=== PATIENT | female | born 1970 | race Caucasian/White ===

== ENCOUNTER 2018-08-11 08:02 | Emergency (ER) | payer BC ==
[2018-08-11] MEDS ORDERED: MAGNE/ALUM HYDROXD 30 ML UCUP ONE (09:06)
[2018-08-11] MEDS ORDERED: METHYLPREDNISOLONE 40 MG INJ ONE (09:07)
[2018-08-11] MEDS ORDERED: NA CHLORIDE 0.9% 1,000 ML ONE (09:07)
[2018-08-11] MEDS ORDERED: MORPHINE 4 MG/ML SYR ONE ×2 (09:07→15:07)
[2018-08-11] MEDS ORDERED: ONDANSETRON 4 MG/2 ML VIAL ONE ×2 (09:07→15:07)
[2018-08-11] MEDS ORDERED: LIDOCAINE VISCOUS 2% SOLN 15 ML UDC ONE (09:08)
[2018-08-11 09:29] LABS: Absolute Lymphocytes (CBC) 0.4 K/uL (0.7-4.9); Absolute Monocytes 0.3 K/uL (0.1-1.3); Absolute Neutrophil 9.2 K/uL (1.8-8.0); Basophils % 0.1 % (0-1.3); Hematocrit 46.4 % (36.0-45.0); Lymphocytes % 3.6 % (15.3-44.8); MCH 30.7 pg (27.0-35.0); MCV 91.6 fL (80-100); MPV 8.8 fL (7.6-11.3); Monocytes % 3.1 % (3.3-12.3); RBC Red Blood Cell Count 5.07 M/uL (3.86-4.86)
--- NOTE | 2018-08-11 09:40 | EKG ---
Test Date: 2018-08-11 Test Time: 08:50:04 Industrial Sales Representative: SKY MEASUREMENT RESULTS: Intervals: Rate: 63 MT: 134 QRSD: 100 QT: 390 QTc: 399 [place]: P: 60 MT: 134 QRS: 74 T: 44 INTERPRETIVE STATEMENTS: Normal sinus rhythm Normal ECG No previous ECG available for comparison Electronically Signed On 08-11-18 09:39:30 MOLASSES COLORING OPERATOR by Theo Call
[2018-08-11 09:55] LABS: Albumin 3.7 g/dL (3.4-5.0); Bilirubin Direct 2.6 mg/dL (0-0.2); Bilirubin Total 5.7 mg/dL (0.2-1.0); Potassium 4.1 mmol/L (3.5-5.1); Protein, Total 7.8 g/dL (6.4-8.2)
[2018-08-11 10:26] LABS: Blood Morphology Comment NOT SEEN (NOT SEEN); Platelet Estimate ADEQ; Urine White Blood Cell Casts OK
[2018-08-11] MEDS ORDERED: NA CHLORIDE 0.9% 250 ML ONE (10:38)
[2018-08-11] MEDS ORDERED: METRONIDAZOLE 500mg IVPB 500 MG/100 ML BAG IV ONE (10:38)
[2018-08-11] MEDS ORDERED: CEFTRIAXONE 1000 MG/VIAL ONE (10:38)
--- NOTE | 2018-08-11 10:49 | EDPHYS ---
Physician Documentation [facility] Name: Muriel Byrd Age: 47 yrs Sex: Female : 1970 Arrival Date: 08/11/2018 Time: 08:08 Bed 7 Private MD: Kirby Barajas B ED Physician Rekha Cornejo HPI: 08/11 10:49 This 47 yrs old Female presents to ER via Ambulatory with complaints of ma2 Abdominal Pain, Vomiting. 08:59 The patient presents to the emergency department with vomiting, abdominal pain. Onset: ma2 The symptoms/episode began/occurred gradually, 4 day(s) ago. Possible causes: unknown. Associated signs and symptoms: Pertinent negatives:. Severity of symptoms: At their worst the symptoms were moderate in the emergency department the symptoms are unchanged. The patient has experienced a previous episode. hx of mild crohns no medication.. here with diffuse abdominal pain and vomiting and constipation x 4 days, constant gradual . 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 - Social history:: Smoking status: Patient/guardian denies using tobacco, Patient/guardian denies using alcohol, street drugs, The patient lives with family. - Ebola Screening: : No symptoms or risks identified at this time. - Family history:: not pertinent. ROS: 08:59 Constitutional: Negative for fever, chills, and weight loss, ENT: Negative for injury, ma2 pain, and discharge. 08:59 Abdomen/GI: Positive for abdominal pain, nausea and vomiting, Negative for vomiting, abdominal cramps, flatulence. 08:59 All other systems are negative. Exam: 08:59 Constitutional: This is a well developed, well nourished patient who is awake, alert, ma2 and in no acute distress. Head/Face: Normocephalic, atraumatic. Chest/axilla: Normal chest wall appearance and motion. Nontender with no deformity. No lesions are appreciated. Cardiovascular: Regular rate and rhythm with a normal S1 and S2. No gallops, murmurs, or rubs. Normal PMI, no JVD. No pulse deficits. Respiratory: Lungs have equal breath sounds bilaterally, clear to auscultation and percussion. No rales, rhonchi or wheezes noted. No increased work of breathing, no retractions or nasal flaring. Back: No spinal tenderness. No costovertebral tenderness. Full range of motion. MS/ Extremity: Pulses equal, no cyanosis. Neurovascular intact. Full, normal range of motion. Neuro: Awake and alert, GCS 15, oriented to person, place, time, and situation. Cranial nerves II-XII grossly intact. Motor strength 5/5 in all extremities. Sensory grossly intact. Cerebellar exam normal. Normal gait. 08:59 Abdomen/GI: Palpation: moderate abdominal tenderness, in the left lower quadrant, rebound tenderness, is not appreciated, voluntary guarding, is not appreciated, involuntary guarding, is not appreciated. Vital Signs: 08:36 BP 117 / 65; Pulse 72; Resp 18 S; Temp 98.8(O); Pulse Ox 100% on R/A; Weight 68.04 kg jl7 (R); Height 5 ft. 9 in. (175.26 cm) (R); Pain 6/10; 09:30 BP 125 / 75; Pulse 72; Resp 16; Pulse Ox 100% ; jl7 10:30 BP 115 / 71; Pulse 70; Resp 16 S; Pulse Ox 100% on R/A; jl7 12:01 BP 114 / 74; Pulse 65; Resp 16 S; Temp 99(O); Pulse Ox 99% on R/A; Pain 2/10; jl7 13:30 BP 110 / 65; Pulse 70; Resp 16 S; Pulse Ox 100% on R/A; jl7 15:00 BP 106 / 61; Pulse 75; Resp 16 S; Pulse Ox 100% on R/A; jl7 08:36 Body Mass Index 22.15 (68.04 kg, 175.26 cm) 7 MDM: 10:06 Patient medically screened. ma2 10:32 Differential diagnosis: Nonspecific abd pain, gastritis, pancreatitis, appendicitis, ma2 diverticulitis. 10:44 Data reviewed: vital signs, nurses notes. Counseling: I had a detailed discussion with ma2 the patient and/or guardian regarding: the historical points, exam findings, and any diagnostic results supporting the discharge/admit diagnosis, the presence of at least one elevated blood pressure reading (>120/80) during this emergency department visit, the need to transfer to another facility. Response to treatment: the patient's symptoms have markedly improved after treatment. ED course: patient has pancreatitis with elevated LFT and d bili likely choledocholithiasis, she will need ERCP not available in our hospital as GI service is not available.. will transfer for higher level of care.. accepted by Dr. Ozzy BOYCE . 08/11 08:50 Order name: Basic Metabolic Panel; Complete Time: 10: [facility] 08/11 08:50 Order name: CBC with Diff; Complete Time: 10:40 [facility] 08/11 08:50 Order name: Creatinine for Radiology; Complete Time: : [facility] 08/11 08:50 Order name: Hepatic Function; Complete Time: 10: [facility] 08/11 08:50 Order name: Lipase; Complete Time: : [facility] 08/11 09:35 Order name: CBC Smear Scan; Complete Time: 10:40 [facility] 08/11 10:05 Order name: Blood Culture Adult (2) [facility] 08/11 10:51 Order name: Urine Dipstick--Ancillary (enter results); Complete Time: 13: 08/11 10:51 Order name: Urine --Ancillary (enter results); Complete Time: 13:07 08/11 08:50 Order name: IV Saline Lock; Complete Time: 09:31 [facility] 08/11 08:50 Order name: Labs collected and sent; Complete Time: 09: [facility] 08/11 08:50 Order name: Urine Dipstick-Ancillary (obtain specimen); Complete Time: : [facility] 08/11 09:39 Order name: EKG Electrocardiogram; Complete Time: 11:53 [facility] 08/11 10:05 Order name: NPO; Complete Time: :56 [facility] 08/11 11:53 Order name: EKG - Nurse/Tech; Complete Time: 11:53 jl7 Administered Medications: 09:15 Drug: NS 0.9% 1000 ml Route: IV; Rate: 1 bolus; Site: right antecubital; jl7 10:00 Follow up: IV Status: Completed infusion; IV Intake: 1000ml bp 09:16 Drug: Zofran 4 mg Route: IVP; Site: right antecubital; jl7 09:30 Follow up: Response: No adverse reaction; Nausea is decreased jl7 09:18 Drug: GI Cocktail without - (Maalox Suspension 30 ml, Lidocaine Liquid 2 % 15 jl7 ml) Route: PO; 10:00 Follow up: Response: No adverse reaction; Pain is decreased jl7 09:20 Drug: MethylPrednisoLONE 80 mg Route: IVP; Site: right antecubital; jl7 10:00 Follow up: Response: No adverse reaction; Pain is decreased jl7 09:25 Drug: morphine 4 mg Route: IVP; Site: right antecubital; jl7 10:00 Follow up: Response: No adverse reaction; Pain is decreased jl7 10:56 Drug: Rocephin 2 grams Route: IV; Rate: calculated rate; Site: right antecubital; bp 11:44 Follow up: IV Status: Completed infusion; IV Intake: 100ml bp 11:00 Drug: Flagyl 500 mg Volume: 100 ml; Route: IVPB; Rate: 200 ml/hr; Infused Over: 30 bp mins; Site: right antecubital; 11:30 Follow up: Response: No adverse reaction; IV Status: Completed infusion jl7 15:01 Drug: Zofran 4 mg Route: IVP; Site: right antecubital; jl7 15:08 Follow up: Response: No adverse reaction jl7 15:04 Drug: morphine 4 mg Route: IVP; Site: right antecubital; jl7 15:09 Follow up: Response: No adverse reaction; Pain is decreased jl7 Disposition: 08/11/18 10:[address] [facility]. Diagnosis are Acute pancreatitis, Biliary acute pancreatitis. - Reason for transfer: Higher level of care. - Accepting physician is Dr. Preciado. - Condition is Stable. - Problem is new. - Symptoms are unchanged. Signatures: Dispatcher [employer] Leonid Olivarez RN RN jl7 Tima Ruiz RN RN bp Rekha Cornejo MD MD ma2 Corrections: (The following items were deleted from the chart) 11:00 08:56 Abdomen Pelvis W Con+CT.RAD.BRZ ordered. EDMS EDMS 15:12 10:48 08/11/2018 10:[address] [facility]. Diagnosis is jl7 Acute pancreatitis; Biliary acute pancreatitis. Reason for transfer: Higher level of care. Accepting physician is Dr. Preciado. Condition is Stable. Problem is new. Symptoms are unchanged. ma2
--- NOTE | 2018-08-11 10:49 | ER ---
Nurse's Notes [facility] Name: Muriel Byrd Age: 47 yrs Sex: Female : 1970 Arrival Date: 08/11/2018 Time: 08:08 Bed 7 Private MD: Kirby Barajas B Diagnosis: Acute pancreatitis;Biliary acute pancreatitis Presentation: 08/11 08:33 Presenting complaint: Patient states: Bilateral lower quadrant pain/cramping/spasms and jl7 vomiting x 3 days, rated 6/10. Pt reports "I feel like I have heart burn in my chest that goes through to my back.", pain rated 5/10. Transition of care: patient was not received from another setting of care. Onset of symptoms was August 08, 2018. Risk Assessment: Do you want to hurt yourself or someone else? Patient reports no desire to harm self or others. Initial Sepsis Screen: Does the patient meet any 2 criteria? No. Patient's initial sepsis screen is negative. Does the patient have a suspected source of infection? No. Patient's initial sepsis screen is negative. Care prior to arrival: None. 08:33 Method Of Arrival: Ambulatory jl7 08:33 Acuity: SILVANA 3 jl7 Triage Assessment: 08:36 General: Appears in no apparent distress. uncomfortable, ill, Behavior is calm, jl7 cooperative, appropriate for age. Pain: Complains of pain in right lower quadrant and left lower quadrant Pain does not radiate. Pain currently is 6 out of 10 on a pain scale. Quality of pain is described as crampy, Pain began 2-3 days ago. Is continuous. Pain: Complains of pain in anterior aspect of right upper chest and anterior aspect of left upper chest Pain radiates to left scapular area and right scapular area Pain currently is 5 out of 10 on a pain scale. Quality of pain is described as burning, Pain began 2-3 days ago. Is continuous. EENT: No signs and/or symptoms were reported regarding the EENT system. Neuro: Level of Consciousness is awake, alert, obeys commands, Oriented to person, place, time, situation. Cardiovascular: Heart tones S1 S2 present Patient's skin is warm and dry. Respiratory: Airway is patent Respiratory effort is even, unlabored, Respiratory pattern is Breath sounds are clear bilaterally. GI: Abdomen is flat, non-distended, Last BM was August 06, 2018. Bowel sounds hypoactive in right upper quadrant, left upper quadrant, right lower quadrant and left lower quadrant Abd is soft X 4 quads Abdomen is tender to palpation X 4 quads. Reports nausea, vomiting. : No signs and/or symptoms were reported regarding the genitourinary system. Derm: Skin is dry, Skin is jaundiced, pale, Skin temperature is warm. Musculoskeletal: Range of motion: intact in all extremities. 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 - Social history:: Smoking status: Patient/guardian denies using tobacco, Patient/guardian denies using alcohol, street drugs, The patient lives with family. - Ebola Screening: : No symptoms or risks identified at this time. - Family history:: not pertinent. Screenin:00 Abuse screen: Denies threats or abuse. Denies injuries from another. Nutritional jl7 screening: No deficits noted. Tuberculosis screening: No symptoms or risk factors identified. Fall Risk IV access (20 points). Assessment: 08:45 General: See triage assessment. jl7 10:00 Reassessment: Patient and/or family updated on plan of care and expected duration. Pain jl7 level reassessed. Patient is alert, oriented x 3, equal unlabored respirations, skin warm/dry/pink. Patient states symptoms have improved. 11:00 Reassessment: Patient appears in no apparent distress at this time. No changes from jl7 previously documented assessment. Patient and/or family updated on plan of care and expected duration. Pain level reassessed. Patient is alert, oriented x 3, equal unlabored respirations, skin warm/dry/pink. 12:00 Reassessment: Patient appears in no apparent distress at this time. Patient and/or jl7 family updated on plan of care and expected duration. Pain level reassessed. Patient is alert, oriented x 3, equal unlabored respirations, skin warm/dry/pink. 14:00 Reassessment: Patient and/or family updated on plan of care and expected duration. Pain jl7 level reassessed. Patient is alert, oriented x 3, equal unlabored respirations, skin warm/dry/pink. Vital Signs: 08:36 BP 117 / 65; Pulse 72; Resp 18 S; Temp 98.8(O); Pulse Ox 100% on R/A; Weight 68.04 kg jl7 (R); Height 5 ft. 9 in. (175.26 cm) (R); Pain 6/10; 09:30 BP 125 / 75; Pulse 72; Resp 16; Pulse Ox 100% ; jl7 10:30 BP 115 / 71; Pulse 70; Resp 16 S; Pulse Ox 100% on R/A; jl7 12:01 BP 114 / 74; Pulse 65; Resp 16 S; Temp 99(O); Pulse Ox 99% on R/A; Pain 2/10; jl7 13:30 BP 110 / 65; Pulse 70; Resp 16 S; Pulse Ox 100% on R/A; jl7 15:00 BP 106 / 61; Pulse 75; Resp 16 S; Pulse Ox 100% on R/A; jl7 08:36 Body Mass Index 22.15 (68.04 kg, 175.26 cm) jl7 ED Course: 08:08 Patient arrived in ED. mr 08:09 Kirby Barajas MD is Private Physician. mr 08:20 Rekha Cornejo MD is Attending Physician. ma2 08:33 Leonid Hooker, LELO is Primary Nurse. jl7 08:35 Triage completed. jl7 08:36 Arm band placed on right wrist. jl7 09:00 Initial lab(s) drawn, by ga, sent to lab. Urine collected: clean catch specimen, clear. jl7 Inserted saline lock: 20 gauge in right antecubital area, using aseptic technique. Blood collected. 09:01 Radiology exam delayed due to lab results not completed at this time. (BUN/Creatinine) jg6 test not completed at this time. 09:11 EKG done, by it service technician. reviewed by Rekha Cornejo MD. sm3 09:55 Radiology exam delayed due to lab results not completed at this time. (BUN/Creatinine). jg6 10:00 Patient has correct armband on for positive identification. Placed in gown. Bed in low jl7 position. Call light in reach. Side rails up X 1. Pulse ox on. NIBP on. 10:14 Radiology exam delayed due to test not completed at this time. jg6 10:28 initiated a transfer with Zoey at the [facility]. eb 10:39 connected the GI telephone diaphragm assembler Dr. Preciado with Dr. Cornejo for patient transfer consultation. eb 10:54 connected the hospitalist from [facility] with ED doc for pt transfer consultaion. eb 12:00 transfer transportation to receiving facility. jl7 15:11 No provider procedures requiring assistance completed. Patient transferred, IV remains jl7 in place. intact, No redness/swelling at site. Administered Medications: 09:15 Drug: NS 0.9% 1000 ml Route: IV; Rate: 1 bolus; Site: right antecubital; jl7 10:00 Follow up: IV Status: Completed infusion; IV Intake: 1000ml bp 09:16 Drug: Zofran 4 mg Route: IVP; Site: right antecubital; jl7 09:30 Follow up: Response: No adverse reaction; Nausea is decreased jl7 09:18 Drug: GI Cocktail without - (Maalox Suspension 30 ml, Lidocaine Liquid 2 % 15 jl7 ml) Route: PO; 10:00 Follow up: Response: No adverse reaction; Pain is decreased jl7 09:20 Drug: MethylPrednisoLONE 80 mg Route: IVP; Site: right antecubital; jl7 10:00 Follow up: Response: No adverse reaction; Pain is decreased jl7 09:25 Drug: morphine 4 mg Route: IVP; Site: right antecubital; jl7 10:00 Follow up: Response: No adverse reaction; Pain is decreased jl7 10:56 Drug: Rocephin 2 grams Route: IV; Rate: calculated rate; Site: right antecubital; bp 11:44 Follow up: IV Status: Completed infusion; IV Intake: 100ml bp 11:00 Drug: Flagyl 500 mg Volume: 100 ml; Route: IVPB; Rate: 200 ml/hr; Infused Over: 30 bp mins; Site: right antecubital; 11:30 Follow up: Response: No adverse reaction; IV Status: Completed infusion jl7 15:01 Drug: Zofran 4 mg Route: IVP; Site: right antecubital; jl7 15:08 Follow up: Response: No adverse reaction jl7 15:04 Drug: morphine 4 mg Route: IVP; Site: right antecubital; jl7 15:09 Follow up: Response: No adverse reaction; Pain is decreased jl7 Intake: 10:00 IV: 1000ml; Total: 1000ml. bp 11:44 IV: 100ml; Total: 1100ml. bp Outcome: 10:48 ER care complete, transfer ordered by . natty 15:11 Transferred by ground EMS to [facility], Transfer form completed. jl7 X-rays sent w/ patient. 15:11 Condition: stable 15:11 Discharge instructions given to patient, Instructed on the need for transfer, Demonstrated understanding of instructions. 15:12 Patient left the ED. jl7 Signatures: Laura JasminealLeonid RN RN [id number] Tima Ruiz, RN RN Rekha Laguerre MD MD ma2 Botello, Elizabeth eb Montes, Shakira 3 Sharron Justin j6
[2018-08-11 11:58] LABS: Urine Blood TRACE (NEG); Urine Glucose TRACE (NEG); Urine Protein 1+ (NEG); Urine pH 5.5 (5.0-7.0)
== END 2018-08-11 15:12 | disposition short-term general hospital (02) ==
LOC: ER 08:02
DX: K85.10 Biliary acute pancreatitis without necrosis or infection (principal); Z88.0 Allergy status to penicillin; Z88.5 Allergy status to narcotic agent
CPT/HCPCS: 36415; 80048; 80076; 81003; 81025; 83690; 85025; 87040; 93005; 96361; 96365; 96368; 96375; 99285; J2405; J2920; J7030